=== PATIENT | female | born 1940 | race Caucasian/White ===

== ENCOUNTER 2019-03-10 09:07 | Outpatient (CLI) | payer MEDICARE, OTHER | END 2019-03-10 23:59 | disposition home or self-care (01) | LOC: CFH 09:07 | PROVIDERS: ATTEND Physician Assistant | DX: M81.0 Age-related osteoporosis without current pathological fracture (principal) | CPT/HCPCS: 77080 ==

== ENCOUNTER → 2020-08-29 | Outpatient (CLI) | payer MEDICARE | END | disposition home or self-care (01) | LOC: CFH 12:45 | PROVIDERS: ATTEND Internal Medicine Cardiovascular Disease | DX: I08.8 Other rheumatic multiple valve diseases (principal); J44.9 Chronic obstructive pulmonary disease, unspecified; R06.02 Shortness of breath | CPT/HCPCS: 93306 ==